=== PATIENT | female | born 1995 | race Caucasian/White ===

== ENCOUNTER 2022-11-08 20:23 | Emergency (ER) | payer MEDICAID ==
[~2022-11-08] VITALS: Ht 160 cm; Wt 54.4 kg
[2022-11-08] MEDS ORDERED: KETOROLAC 30 MG/ML VIAL IVP STA (21:33)
[2022-11-08 21:40] LABS: BILIRUBIN,URINE NEGATIVE (NEGATIVE); CLARITY,URINE CLEAR; COLOR,URINE YELLOW; GLUCOSE, URINE (UA) NEGATIVE (NEGATIVE); KETONES,URINE NEGATIVE (NEGATIVE); LEUKOCYTE ESTERASE ,URINE 3+ (NEGATIVE); NITRITE,URINE NEGATIVE (NEGATIVE); PROTEIN,URINE NEGATIVE (NEGATIVE)
--- NOTE | 2022-11-08 21:43 | ED Abdominal Pain ---
General Chief Complaint: Abdominal/GI Problems Stated Complaint: LOWER ADB PAIN| BLOATING Nursing Triage Note: PT TO RM 3 BY WC WITH C/O LOW ABD PAIN FOR A MONTH, WORSENING OVER THE LAST 2 WEEKS. PT DESCRIBES PAIN SHARP AND STABBING. PT ALSO STATES SHE HAS HAD WORSE BLEEDING DURING HER PERIOD THE LAST 2 MO Source of Information: Patient Exam Limitations: No Limitations History of Present Illness Date Seen by Provider: November 08, 2022 Time Seen by Provider: 21:17 Initial Comments Here with report of lower abdominal pain over the last month worse over the last 2 weeks. She has had work-up at outside facilities including ultrasound which showed some enlarged left side ovary per the patient and she had a CT scan which showed a moderate amount of stool but otherwise did not show significant abnormality. She states that she has been constipated and she did use some medicine and was able to get a good stool yesterday and she feels like she is cleaned out. Still complains of bloating and states that she has increased bloating over the last month. States that sometimes she feels like she has to urinate but cannot. She does have small amount of vaginal discharge but no bleeding. She does report heavier periods. Reports history of tubal ligation. She has a daily marijuana smoker due to helping her with her seizure disorder. She also takes Keppra daily and takes it as prescribed. She was prescribed Tylenol 3 and I did not help and she did try 1 hydrocodone this morning and that did help with her pain. Timing/Duration: Getting Worse, Other (Month getting worse over the last 2 weeks) Severity/Quality: Moderate, Cramping, Sharp, Stabbing Location: Suprapubic Radiation: RLQ, LLQ Activities at Onset: None Modifying Factors: Improves With Analgesics, Improves With Defecating Associated Symptoms: No Chest Pain, No Fever/Chills, No Nausea/Vomiting; Swelling/Mass in Abdomen; No Weakness Allergies and Home Medications Allergies Coded Allergies: No Known Drug Allergies (Unverified , 11/08/22) Patient Home Medication List Home Medication List Reviewed: Yes Review of Systems Review of Systems Constitutional: see HPI; No chills, No fever EENTM: No Nose Congestion, No Throat Pain Respiratory: Denies Cough, Denies Shortness of Air Cardiovascular: Denies Chest Pain, Denies Edema Gastrointestinal: Abdominal Pain, Constipated; Denies Diarrhea; Nausea; Denies Vomiting Genitourinary: Flank Pain; Denies Hematuria, Denies Urgency Musculoskeletal: No muscle pain Skin: no symptoms reported Past Mlgclbh-Eutazb-Ddugns Hx Patient Social History Tobacco Use?: Yes Tobacco type used: Cigarettes Substance use?: Yes Substance type: Marijuana Alcohol Use?: No Pt feels they are or have been: No Past Medical History Surgery/Hospitalization HX: TUBAL, EPILEPSY Surgeries: Yes Tubal Ligation Neurological: Yes Seizure Disorder Last Menstrual Period: Oct 12, 2022 Psychosocial: Yes Anxiety Family Medical History Reviewed Nursing Family Hx Physical Exam Vital Signs Vital Signs - First Documented 11/08/22 21:04 Pulse 79 Resp 18 B/P (MAP) 98/72 (81) Pulse Ox 98 O2 Delivery Room Air Capillary Refill : Height/Weight/BMI Height: '" Weight: lbs. oz. kg; 21.00 BMI Method: General Appearance: WD/WN, no apparent distress Respiratory: lungs clear, normal breath sounds Cardiovascular: regular rate, rhythm, no murmur Gastrointestinal: soft, tenderness (Mild to the suprapubic region) Extremities: non-tender, normal inspection Back: normal inspection, no CVA tenderness, no vertebral tenderness Neurologic/Psychiatric: alert, oriented x 3 Skin: normal color, warm/dry Progress/Results/Core Measures Results/Orders Lab Results Laboratory Tests Test 11/08/22 21:10 11/08/22 21:45 Range/Units Urine Color YELLOW Urine Clarity CLEAR Urine pH 6.0 5-9 Urine Specific Mcloud 1.010 L 1.016-1.022 Urine Protein NEGATIVE NEGATIVE Urine Glucose (UA) NEGATIVE NEGATIVE Urine Ketones NEGATIVE NEGATIVE Urine Nitrite NEGATIVE NEGATIVE Urine Bilirubin NEGATIVE NEGATIVE Urine Urobilinogen 0.2 < = 1.0 MG/DL Urine Leukocyte Esterase 3+ H NEGATIVE Urine RBC (Auto) NEGATIVE NEGATIVE Urine RBC 0-2 /HPF Urine WBC 2-5 /HPF Urine Squamous Epithelial Cells 5-10 /HPF Urine Crystals PRESENT H /LPF Urine Amorphous Sediment MOD MIHAELA URATES H /LPF Urine Bacteria FEW H /HPF Urine Casts NONE /LPF Urine Mucus SMALL H /LPF Urine Other /HPF Urine Culture Indicated YES White Blood Count 5.8 4.3-11.0 10^3/uL Red Blood Count 3.92 3.80-5.11 10^6/uL Hemoglobin 12.0 11.5-16.0 g/dL Hematocrit 36 35-52 % Mean Corpuscular Volume 91 80-99 fL Mean Corpuscular Hemoglobin 31 25-34 pg Mean Corpuscular Hemoglobin Concent 34 32-36 g/dL Red Cell Distribution Width 12.1 10.0-14.5 % Platelet Count 189 130-400 10^3/uL Mean Platelet Volume 11.3 9.0-12.2 fL Immature Granulocyte % (Auto) 0 % Neutrophils (%) (Auto) 55 42-75 % Lymphocytes (%) (Auto) 34 12-44 % Monocytes (%) (Auto) 7 0-12 % Eosinophils (%) (Auto) 3 0-10 % Basophils (%) (Auto) 1 0-10 % Neutrophils # (Auto) 3.2 1.8-7.8 10^3/uL Lymphocytes # (Auto) 2.0 1.0-4.0 10^3/uL Monocytes # (Auto) 0.4 0.0-1.0 10^3/uL Eosinophils # (Auto) 0.2 0.0-0.3 10^3/uL Basophils # (Auto) 0.0 0.0-0.1 10^3/uL Immature Granulocyte # (Auto) 0.0 0.0-0.1 10^3/uL Sodium Level 139 135-145 MMOL/L Potassium Level 4.0 3.6-5.0 MMOL/L Chloride Level 108 H 98-107 MMOL/L Carbon Dioxide Level 22 21-32 MMOL/L Anion Gap 9 5-14 MMOL/L Blood Urea Nitrogen 8 7-18 MG/DL Creatinine 0.85 0.60-1.30 MG/DL Estimat Glomerular Filtration Rate 95 BUN/Creatinine Ratio 9 Glucose Level 101 70-105 MG/DL Calcium Level 9.1 8.5-10.1 MG/DL Corrected Calcium 9.0 8.5-10.1 MG/DL Total Bilirubin 0.2 0.1-1.0 MG/DL Aspartate Amino Transf (AST/SGOT) 16 5-34 U/L Alanine Aminotransferase (ALT/SGPT) 18 0-55 U/L Alkaline Phosphatase 46 40-136 U/L C-Reactive Protein High Sensitivity 0.10 0.00-0.50 MG/DL Total Protein 6.7 6.4-8.2 GM/DL Albumin 4.1 3.2-4.5 GM/DL My Orders Orders - PRAIRIE BAND,BUSHRA D MD Cbc With Automated Diff (11/08/22 21:33) Comprehensive Metabolic Panel (11/08/22 21:33) Hs C Reactive Protein (11/08/22 21:33) Ua Culture If Indicated (11/08/22 21:33) Ed Iv/Invasive Line Start (11/08/22 21:33) Ketorolac Injection (Toradol Injection) (11/08/22 21:33) Wet Prep (11/08/22 21:33) Neis Vahe Dna Urine Test (11/08/22 21:33) Chlam Dna Probe (11/08/22 21:33) Urine Culture (11/08/22 21:10) Vital Signs/I&O 11/08/22 21:04 Pulse 79 Resp 18 B/P (MAP) 98/72 (81) Pulse Ox 98 O2 Delivery Room Air Blood Pressure Mean: 81 Progress Progress Note : Progress Note Seen and evaluated. IV and labs ordered. Ketorolac injection ordered 30 mg IV. Labs include CBC, CMP and UA as well as wet prep. We will check GC and chlamydia urine studies. Monitor patient. Differential diagnosis includes UTI, bacterial vaginosis, STI 2338: CBC and CMP are grossly normal. CRP is negative. UA shows leuk esterase. Wet prep shows few white but 0 to trichomoniasis and 0 yeast. Numerous clue cells noted. I do believe findings are consistent with bacterial vaginosis. Metronidazole 500 mg p.o. as well as hydrocodone 5/325 1 tab p.o. for pain. She will continue OTC meds and her previous prescription for pain and we will initiate outpatient metronidazole twice daily for 7 days. She was instructed that STI testing is pending and we will call her if this is positive. Based on wet prep findings I do not believe that she has findings consistent with STI so we will hold treatment at this point. Discharged home with return precautions. Patient verbalized understanding instructions and agreement with plan. Departure Impression Primary Impression: Bacterial vaginosis Disposition: HOME, SELF-CARE Condition: Stable Departure-Patient Inst. Decision time for Depature: 23:40 Referrals: NO,LOCAL PHYSICIAN (PCP/Family) Primary Care Physician Patient Instructions: Bacterial Vaginosis ED Add. Discharge Instructions: All discharge instructions reviewed with patient and/or family. Voiced understanding. Take medications as directed. You were found to have bacterial vaginosis which we will treat with medication prescription provided. Make sure you take these until complete. You may take Tylenol/acetaminophen 1000 mg every 6-8 hours as needed for pain but do not take if you are taking the prescribed pain medicine as they both have acetaminophen in them. You may also take ibuprofen 400 to 600 mg every 8 hours as needed for pain and take this with food to prevent stomach upset. Drink plenty of fluids. Follow-up with your passenger tire inspector as scheduled in 3 weeks and let them know about this visit and diagnosis so they can recheck to ensure success in treatment. Return for worse pain, weakness, fever, vomiting or other concerns as needed. You may take [id number] probiotic per package directions as well to reduce symptoms. Scripts Metronidazole (Metronidazole) 500 Mg Tablet 500 MG PO BID, #14 TAB 0 Refills Prov: BUSHRA ESTRADA MD 11/08/22 BUSHRA ESTRADA MD November 08, 2022 21:43
[2022-11-08 21:51] LABS: AMORPHOUS SEDIMENT,UR MOD AMOR URATES /LPF; BACTERIA,URINE FEW /HPF; RBC,URINE 0-2 /HPF
[2022-11-08 21:53] LABS: BASOPHILS % (AUTO) 1 % (0-10); EOSINOPHILS # (AUTO) 0.2 10^3/uL (0.0-0.3); EOSINOPHILS % (AUTO) 3 % (0-10); HEMATOCRIT 36 % (35-52); LYMPHOCYTES % (AUTO) 34 % (12-44); MEAN CORPUSCULAR HEMOGLOBIN 31 pg (25-34); MEAN CORPUSCULAR HGB CONC 34 g/dL (32-36); MEAN CORPUSCULAR VOLUME 91 fL (80-99); MEAN PLATELET VOLUME 11.3 fL (9.0-12.2); MONOCYTES # (AUTO) 0.4 10^3/uL (0.0-1.0); MONOCYTES % (AUTO) 7 % (0-12); NEUTROPHILS # (AUTO) 3.2 10^3/uL (1.8-7.8); NEUTROPHILS % (AUTO) 55 % (42-75); PLATELET COUNT 189 10^3/uL (130-400); WHITE BLOOD COUNT 5.8 10^3/uL (4.3-11.0)
[2022-11-08 22:03] LABS: ALBUMIN 4.1 GM/DL (3.2-4.5)
[2022-11-08 22:05] LABS: CALCIUM 9.1 MG/DL (8.5-10.1)
[2022-11-08 22:06] LABS: TOTAL PROTEIN 6.7 GM/DL (6.4-8.2)
[2022-11-08 22:08] LABS: BILIRUBIN,TOTAL 0.2 MG/DL (0.1-1.0)
[2022-11-08 22:10] LABS: CREATININE SERUM 0.85 MG/DL (0.60-1.30)
[2022-11-08] MEDS ORDERED: METR-145 PO (23:44)
[2022-11-08] MEDS ORDERED: HYDROcodone/APAP 5 MG/325 MG (LORTAB) TAB PO ONE (23:45)
[2022-11-08] MEDS ORDERED: metroNIDAZOLE 500 MG (FLAGYL) TAB PO ONE (23:45)
[2022-11-08 23:57] VITALS: BP 110/72
== END 2022-11-08 23:58 | disposition home or self-care (01) ==
LOC: ER 20:28
DX: N76.0 Acute vaginitis (principal); G40.909 Epilepsy, unspecified, not intractable, without status epilepticus; F17.210 Nicotine dependence, cigarettes, uncomplicated; Z79.899 Other long term (current) drug therapy
CPT/HCPCS: 36415; 80053; 81000; 84703; 85025; 86141; 87088; 87210; 87491; 87591